=== PATIENT | female | born 1950 | race Caucasian/White ===

== ENCOUNTER → 2016-08-14 | Outpatient (CLI) | payer MEDICARE, OTHER ==
[~2016-08-14] MED LIST: CIPRO 500MG TA500 MG PO; CITALOPRAM10 MG PO; FUROSEMIDE 20MG20 MG PO; HYDROCHLOROTHIA25 M1 PO; HYDROCODONE BIT1 T36 PO; K-DUR 20MEQ TA20 MEQ PO; LASIX20 MG PO; LEVOTHYROXIN0.075 MG PO; LEXAPRO 20 MG T20 MG PO; LISINOPRIL 5MG T5 MG PO; LISINOPRIL/HCTZ1 TA3 PO; MOTRIN 600MG.600 MG PO; PANTOPRAZOLE SO40 M1 PO; PROTONIX 40MG T40 MG PO; PYRIDIUM 200MG200 MG PO; SPIRONOLACTONE25 MG PO; SYNTHROID 0.0.075 MG PO; TESSALON PERLE100 MG PO; TESSALON PERLE200 MG PO; TRAMADOL 50MG T50 MG PO; TYLENOL W/CODEI1 TA2 PO; VITAMIN D50000 I1 PO; WELLBUTRIN XL150 M1 PO; ZOFRAN ODT4 MG PO; [UNRECOGNIZED DRUG - REMARK]
[2016-08-14 13:49] LABS: BUN 10 mg/dL (7-18)
[2016-08-14 13:50] LABS: GFR (ESTIMATED) 84 ML/MIN (59-)
== END ==
LOC: LAB 12:15
PROVIDERS: Internal Medicine Adolescent Medicine
DX: E11.9 Type 2 diabetes mellitus without complications (principal); E78.5 Hyperlipidemia, unspecified; E03.9 Hypothyroidism, unspecified

== ENCOUNTER 2017-01-03 15:40 | Emergency (ER) | payer OTHER, MEDICARE ==
[~2017-01-03] VITALS: Ht 157.5 cm; Wt 77.1 kg
--- OUTSIDE RECORDS SUMMARY | 2017-01-03 16:00 | External Medical Summary Rpt | CCD ---
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 Name Role Phone Silver Ramsey MD, Unavailable Unavailable Silver Ramsey MD Purpose Continuity of Care Document - 02-04-2013 through 2016 Problems Code Diagnosis DOS Provider Status M89.8X1 OTHER 04-24-2016 SPECIFIED DISORDERS OF BONE, SHOULDER 311 311 02-04-2013 [place] DEPRESSIVE [facility] DISORDER [facility] 401.9 401.9 02-04-2013 [place] HYPERTENSIO [facility] NOS Hospital 413.9 413.9 02-04-2013 [place] ANGINA [facility] PECTORIS [facility] NEC/NOS 786.59 786.59 02-04-2013 [place] CHEST PAIN [facility] V14.8 V14.8 02-04-2013 [facility] V17.3 V17.3 [facility] 02-04-2013 [facility] HEART DIS [facility] V17.49 V17.49 02-04-2013 [place] FAMILY [facility] HISTORY OF Hospital OTHER CARDIOVASCU LAR DISEASES V18.0 V18.0 [facility] 02-04-2013 [facility] MELLITUS [facility] E03.9 HYPOTHYROID ISM, UNSPECIFIED E11.9 TYPE 2 DIABETES MELLITUS WITHOUT COMPLICATIO NS E78.4 OTHER HYPERLIPIDE SIMI I10 ESSENTIAL (PRIMARY) HYPERTENSIO N M54.5 LOW BACK PAIN R10.9 UNSPECIFIED ABDOMINAL PAIN R30.0 DYSURIA R31.29 OTHER MICROSCOPIC HEMATURIA R47.81 SLURRED SPEECH Z12.31 ENCNTR SCREEN MAMMOGRAM FOR MALIGNANT NEOPLASM OF BREAST Allergies, Adverse Reactions, Alerts Type Allergy to substance Drug Allergy Adverse Reaction to Substance Substance Reaction Severity Latex I-HIVES Unknown Promethazine Unknown Unknown Azithromycin NAUSEA/VOMITING Unknown Medications Na ND Rx Da Fi Fi Am Da Di Ph RX Ph St me C No te ll ll ou ys ag ar # ys at rm s nt no ma ic us Or Da si cy ia de te s n re d As 63 12 0 No pi 73 -1 ri 90 7- Lo n 02 20 ng EC 30 13 er 1 32 Ac 5M ti G ve Ta bl et LO 00 12 0 No VE 07 -1 NO 50 7- Lo X 62 20 ng 10 30 13 er 0 1 MG Ac /M ti L ve SY RI NG E NI 00 12 0 No TR 28 -1 O- 10 7- Lo BI 32 20 ng D 60 13 er 2% 8 Ac OI ti NT ve ME NT Vital Signs 02-04-2013 21:00 Name Value Interpretat Reference Comment ion Range Body 97.8 [degF] Temperature BP 75 mm[Hg] Diastolic BP Systolic 113 mm[Hg] Heart 60 /min Rate/Pulse O2% 96 % Respiratory 20 /min Rate 02-04-2013 16:00 Name Value Interpretat Reference Comment ion Range O2% 96 % 02-04-2013 10:00 Name Value Interpretat Reference Comment ion Range Body 98.2 [degF] Temperature BP 79 mm[Hg] Diastolic BP Systolic 142 mm[Hg] Heart 70 /min Rate/Pulse Height 157.48 cm Respiratory 16 /min Rate Weight 190 [lb_av] Measured Weight 86.354 kg Measured Results Labs Lab Lab Date Result Refere Interp Status Commen Order Detail nces retati t Range on Bacteria Ur Cult (08-30-2016 10:48) Bacteri [id number] complet a XXX 017 07 ed Anaerob 10:48 Escheri e+Aerob dougie e Cult coli (organi sm) SCT ECOL ESCHERI DOUGIE COLI L CC XXX NOTAP complet VC-aCnc 017 NOT ed 10:48 APPLICA BLE L Hemoglobin A1c in Blood (08-14-2016 12:16) Hemoglo 6.2 % 0.0% Normal complet bin A1c 017 - ed in 12:16 7.0% Blood BASIC METABOLIC PANEL (02-04-2013 10:35) Glucose 103 74-106 complet 013 mg/dL ed Bld-mCn 10:35 c BUN 19 7-18 complet Bld-mCn 013 mg/dL ed c 10:35 Creat 0.9 0.6-1.0 complet SerPl-m 013 mg/dL ed Cnc 10:35 Creat 87 50-200 complet Cl 013 ML/MIN ed predict 10:35 ed SerPl C-G-vRa te GFR/BSA 63 59- complet .pred 013 ML/MIN ed SerPl 10:35 Schwart z-vRate Sodium 141 136-145 complet SerPl-s 013 mmoL/L ed Cnc 10:35 Potassi 4.1 3.5-5.1 complet um 013 mmoL/L ed SerPl-s 10:35 Cnc Chlorid 103 98-107 complet e 013 mmoL/L ed SerPl-s 10:35 Cnc CO2 29 21.0-32 complet SerPl-s 013 mmoL/L .0 ed Cnc 10:35 Calcium 8.8 8.5-10. complet 013 mg/dL 1 ed SerPl-m 10:35 Cnc LIPID PROFILE (02-04-2013 10:35) Cholest 02-04- 180 Less complet 013 mg/dL than ed SerPl-m 10:35 200 Cnc HDLc 37.0 40-60 complet SerPl-m 013 MG/DL ed Cnc 10:35 LDLc 102.8 0-130 complet SerPl 013 mg/dL ed Calc-mC 10:35 nc VLDL 02-04- 40.2 0-40 complet CHOLEST 013 UNK ed RADHA 10:35 Trigl 201 30-200 complet SerPl-m 013 mg/dL ed Cnc 10:35 CBC with AUTO DIFF (02-04-2013 10:35) WBC # 17-2 7.4 4.8-10. complet Bld 013 K/MM3 8 ed Auto 10:35 RBC # 02-04- 4.73 4.2-5.4 complet Bld 013 M/mm3 ed Auto 10:35 Hgb 02-04- 14.0 12.2-16 complet Bld-mCn 013 g/dL .2 ed c 10:35 Hct Fr 40.2 % 37.0-47 complet Bld 013 .0 ed 10:35 MCV RBC 12-17-2 85.0 fl 82.2-97 complet 013 .8 ed 10:35 MCH RBC -17-2 29.7 pg 27-31.2 complet Qn 013 ed Auto 10:35 MEAN 12-17-2 35.0 31.8-35 complet CORPUSC 013 g/dl .4 ed ULAR 10:35 HGB CONC RDW RBC -17-2 14.7 % 11.5-17 complet Auto 013 .5 ed 10:35 Platele 12-17-2 264 142-424 complet t Bld 013 K/mm3 ed Ql 10:35 Manual MEAN -17-2 7.7 fl 7.4-10. complet PLATELE 013 4 ed T 10:35 VOLUME Granulo 12-17-2 64.1 % 37.0-80 complet cytes 013 .0 ed Fr Bld 10:35 Auto LYMPH % 12-17-2 29.2 % 10-50.0 complet 013 ed 10:35 Monocyt 12-17-2 5.4 % 1.7-9.3 complet es Fr 013 ed Bld 10:35 Auto Eosinop 12-17-2 1.0 % 0.1-12. complet hil Fr 013 0 ed Bld 10:35 Auto Basophi 12-17-2 0.3 % 0.1-2.0 complet ls Fr 013 ed Bld 10:35 Auto Granulo 12-17-2 4.7 1.8-7.8 complet cytes # 013 K/mm3 ed Bld 10:35 Auto Lymphoc 12-17-2 2.2 0.7-4.5 complet ytes Fr 013 K/mm3 ed Bld 10:35 Auto Monocyt 12-17-2 0.4 0.1-1.0 complet es # 013 K/mm3 ed Bld 10:35 Auto Eosinop 12-17-2 0.1 0.0-0.4 complet hil # 013 K/mm3 ed Bld 10:35 Auto Basophi 12-17-2 0.0 0-0.2 complet ls # 013 K/MM3 ed Bld 10:35 Auto Encounters Encounter Start End Date Code Location Performer Type Date Inpatient IMP Aly Ramsey MD ([place]) 3 09:33 3 20:30 [facility]
--- OUTSIDE RECORDS SUMMARY | 2017-01-03 16:00 | External Medical Summary Rpt | CCD ---
Author Author , MANAV Organization MANAV Address Unknown Phone [email or web address] Care Team Providers Care Vp Of Marketing Name Role Phone Silver Ramsey MD, Unavailable Unavailable Silver Ramsey MD Purpose Continuity of Care Document - 02-04-2013 through 2016 Problems Code Diagnosis DOS Provider Status M89.8X1 OTHER 04-24-2016 SPECIFIED DISORDERS OF BONE, SHOULDER 311 311 02-04-2013 [place] DEPRESSIVE [facility] DISORDER [facility] 401.9 401.9 02-04-2013 [place] HYPERTENSIO [facility] NOS Hospital 413.9 413.9 02-04-2013 [place] ANGINA [facility] PECTORIS [facility] NEC/NOS 786.59 786.59 02-04-2013 [place] CHEST PAIN [facility] V14.8 V14.8 [facility]-04[facility] V17.3 V17.3 [facility] 02-04-2013 [facility] HEART DIS [facility] V17.49 V17.49 02-04-2013 [place] FAMILY [facility] HISTORY OF Hospital OTHER CARDIOVASCU LAR DISEASES V18.0 V18.0 [facility] 02-04-2013 [facility] MELLITUS [facility] E03.9 HYPOTHYROID ISM, UNSPECIFIED E11.9 TYPE [...] on Bacteria Ur Cult (08-30-2016 10:48) Bacteri [id number] complet a XXX 017 07 ed Anaerob [...] Ramsey MD ([place]) 3 09:33 3 20:30 [facility]
--- OUTSIDE RECORDS SUMMARY | 2017-01-03 16:01 | External Medical Summary Rpt ---
Author Author MANAV El, MANAV [employer] Organization MANAV [employer] Address Unknown Phone Unavailable Results Thyrotropin [Units/volume] in Serum or Plasma Observa Value Referen Units Interpr Notes Date tion ce etation Range Thyrotrop 0.358 - uIU/ml High No Aug 14 in 3.740 informati 2016 [Units/vo on in 12:16 PM lume] in source Serum or data Plasma Comprehensive metabolic 2000 panel in Serum or Plasma Observa Value Referen Units Interpr Notes Date tion ce etation Range Albumin/G 1.1 - 1.8 No Normal No Aug 14 lobulin informati informati 2016 [Mass on in on in 12:16 PM ratio] in source source Serum or data data Plasma Albumin 3.4 - 5.0 gm/dL Normal No Aug 14 [Mass/vol informati 2016 ume] in on in 12:16 PM Serum or source Plasma data Alkaline 46 - 116 U/L High No Aug 14 phosphata informati 2016 se on in 12:16 PM [Enzymati source c data activity/ volume] in Serum or Plasma Bilirubin 0.2 - 1.0 mg/dL Normal No Aug 14 .total informati 2016 [Mass/vol on in 12:16 PM ume] in source Serum or data Plasma Urea 7 - 18 mg/dL Normal No Aug 14 nitrogen informati 2016 [Mass/vol on in 12:16 PM ume] in source Serum or data Plasma Calcium 8.5 - mg/dL Normal No Aug 14 [Mass/vol 10.1 informati 2016 ume] in on in 12:16 PM Serum or source Plasma data Chloride 98 - 107 mmoL/L High No Aug 14 [Moles/vo informati 2017 lume] in on in 12:16 PM Serum or source Plasma data Carbon 21.0 - mmoL/L Normal No Aug 14 dioxide, 32.0 informati 2017 total on in 12:16 PM [Moles/vo source lume] in data Serum or Plasma Creatinin 0.55 - mg/dL Normal No Aug 14 e 1.02 inform2016 [Mass/vol on in 12:16 PM ume] in source Serum or data Plasma Estimated 59- ML/MIN No REFERENCE Aug 14 informati RANGE: 2017 glomerula on in >60 12:16 PM r source ML/MIN/1. filtratio data 73 SQUARE n rate METERSIf (GF this patient is -A merican, then multiply theresult by 1.210. Globulin 1.3 - 3.2 gm/dL Normal No Aug 14 [Mass/vol informati 2016 ume] in on in 12:16 PM Serum source data Glucose 74 - 106 mg/dL Normal No Aug 14 [Mass/vol informati 2016 ume] in on in 12:16 PM Serum or source Plasma data Potassium 3.5 - 5.1 mmoL/L Normal No Aug 142016 [Moles/vo on in 12:16 PM lume] in source Serum or data Plasma Sodium 136 - 145 mmoL/L Normal No Aug 14 [Moles/vo informati 2016 lume] in on in 12:16 PM Serum or source Plasma data Aspartate 15 - 37 U/L Low No Aug 142016 aminotran on in 12:16 PM sferase source [Enzymati data c activity/ volume] in Serum or Plasma Alanine 12 - 78 U/L Normal No Aug 14 aminotran 2016 sferase on in 12:16 PM [Enzymati source c data activity/ volume] in Serum or Plasma Protein 6.4 - 8.2 gm/dL Normal No Aug 14 [Mass/vol informati 2016 ume] in on in 12:16 PM Serum or source Plasma data Lipid 1996 panel in Serum or Plasma Observa Value Referen Units Interpr Notes Date tion ce etation Range Cholester < 200 mg/dL No No Aug 14 ol informati inform2016 [Moles/vo on in on in 12:16 PM lume] in source source Unspecifi data data ed specimen Cholester 40 - 60 MG/DL Low No Aug 14 ol in HDL inform2016 on in 12:16 PM [Mass/vol source ume] in data Serum or Plasma Cholester 0 - 130 mg/dL Normal No Aug 14 ol in LDL inform2016 on in 12:16 PM [Mass/vol source ume] in data Serum or Plasma by marjorie on Triglycer 30 - 200 mg/dL High No Aug 14 cara informati 2016 [Moles/vo on in 12:16 PM lume] in source Serum or data Plasma Cholester 0 - 40 No High No Aug 14 ol in informati informati 2017 VLDL on in on in 12:16 PM [Mass/vol source source ume] in data data Serum or Plasma Hemoglobin A1c in Blood Observa Value Referen Units Interpr Notes Date tion ce etation Range Hemoglo 6.2 0.0 - % Normal < 6% Aug 14 bin A1c 7.0 NON-MARLENE 2017 in BETIC 12:16 Blood LEVEL< PM 7% CONTROL LED DIABETI C LEVEL> 8% POORLY CONTROL LED DIABETI C LEVEL
--- OUTSIDE RECORDS SUMMARY | 2017-01-03 16:01 | External Medical Summary Rpt | CCD ---
Author Author , MANAV EM Address Unknown Phone [email or web address] Immunization Name Date Rout CVX Reac Dose Comm Prov Is Faci e tion ent ider Refu lity Give sed n Infl 09-1 Intr 0.5 Hist KHAF No RITE uenz 7-20 amus mL oric CLARISSA AID0 a 17 cula al AYMA 3938 Tri, r Info N Adj rmat ion - Sour ce Unsp ecif ied Infl 09-1 Intr 999 Hist PD20 No PD20 uenz 7-20 amus oric 255 255 a 17 cula al Quad r Info rmat W/Pr ion es - Sour ce Unsp ecif ied
--- OUTSIDE RECORDS SUMMARY | 2017-01-03 16:01 | External Medical Summary Rpt | CCD ---
Author Author [employer] Organization [employer] Address Unknown Phone Unavailable Purpose Continuity of Care Document - through 2016
--- OUTSIDE RECORDS SUMMARY | 2017-01-03 16:01 | External Medical Summary Rpt ---
Author Author MANAV El, MANAV [email or web address] Organization MANAV [employer] Address Unknown Phone Unavailable [...]
--- OUTSIDE RECORDS SUMMARY | 2017-01-03 16:01 | External Medical Summary Rpt | CCD ---
Author Author , MANAV EM Address Unknown Phone [email or web address] Immunization Name Date Rout CVX Reac Dose [...]
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
[2017-01-03 16:45] VITALS: BP 156/96
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
== END 2017-01-03 16:45 | disposition home or self-care (01) ==
LOC: ER 15:40
DX: S29.019A Strain of muscle and tendon of unspecified wall of thorax, initial encounter (principal); V43.52XA Car driver injured in collision with other type car in traffic accident, initial encounter; Y92.410 Unspecified street and highway as the place of occurrence of the external cause; I10 Essential (primary) hypertension; E11.9 Type 2 diabetes mellitus without complications

== ENCOUNTER 2017-01-06 18:07 | Emergency (ER) | payer MEDICARE, OTHER ==
[~2017-01-06] VITALS: Ht 157.5 cm; Wt 74.6 kg
--- OUTSIDE RECORDS SUMMARY | 2017-01-06 18:18 | External Medical Summary Rpt | CCD ---
Author Author , MANAV EM Address Unknown Phone [email or web address] Immunization Name Date Rout CVX Reac Dose Comm Prov Is Faci e tion ent ider Refu lity Give sed n Infl 09-1 Intr 999 Hist PD20 No PD20 uenz 7-20 amus oric 255 255 a 17 cula al Quad r Info rmat W/Pr ion es - Sour ce Unsp ecif ied Infl 09-1 Intr 0.5 Hist KHAF No RITE uenz 7-20 amus mL oric CLARISSA AID0 a 17 cula al AYMA 3938 Tri, r Info N Adj rmat ion - Sour ce Unsp ecif ied
--- OUTSIDE RECORDS SUMMARY | 2017-01-06 18:18 | External Medical Summary Rpt ---
Author Author MANAV El, MANAV [employer] Organization [employer] Address Unknown Phone Unavailable [...]
--- OUTSIDE RECORDS SUMMARY | 2017-01-06 18:18 | External Medical Summary Rpt | CCD ---
Author Author , MANAV EM Address Unknown Phone [email or web address] Immunization Name Date Rout CVX Reac Dose [...]
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
--- OUTSIDE RECORDS SUMMARY | 2017-01-06 18:18 | External Medical Summary Rpt | CCD ---
Author Author , MANAV EM Address Unknown Phone [email or web address] Care Team Providers Care Crime Scene Analyst Name Role Phone Silver Ramsey MD, Unavailable Unavailable Silver Ramsey MD Purpose Continuity of Care Document - 02-04-2013 through 2016 Problems Code Diagnosis DOS Provider Status M89.8X1 OTHER 04-24-2016 SPECIFIED DISORDERS OF BONE, SHOULDER 311 311 02-04-2013 [place] DEPRESSIVE [facility] DISORDER [facility] 401.9 401.9 02-04-2013 [place] HYPERTENSIO [facility] NOS Hospital 413.9 413.9 02-04-2013 [place] ANGINA [facility] PECTORIS [facility] NEC/NOS 786.59 786.59 02-04-2013 [place] CHEST PAIN [facility] V14.8 V14.8 [facility]-04[facility] V17.3 V17.3 FAM 02-04-2013 [facility] HEART DIS [facility] V17.49 V17.49 02-04-2013 [place] FAMILY [facility] HISTORY OF Hospital OTHER CARDIOVASCU LAR DISEASES V18.0 V18.0 [facility] 02-04-2013 [facility] MELLITUS [facility] E03.9 HYPOTHYROID ISM, UNSPECIFIED E11.9 TYPE 2 [...] NOT ed 10:48 APPLICA BLE L Bacteri [id number] complet a XXX 017 07 ed Anaerob [...] Date Code Location Performer Type Date Inpatient [facility] Aly Ramsey MD ([place]) 3 09:33 3 20:30 [facility]
--- OUTSIDE RECORDS SUMMARY | 2017-01-06 18:18 | External Medical Summary Rpt ---
Author Author MANAV El, MANAV [employer] Organization [employer] Address Unknown Phone Unavailable [...]
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
[2017-01-06] MEDS ORDERED: PROAIR HFA0.09 MG/AC IH (19:05)
[2017-01-06] MEDS ORDERED: ZITHROMAX Z PA250 MG PO (19:05)
[2017-01-06] MEDS ORDERED: MUCINEX1200 MG PO (19:08)
[2017-01-06] MEDS ORDERED: TESSALON PERLE100 M1 PO (19:08)
[2017-01-06 19:20] VITALS: BP 128/84
== END 2017-01-06 19:20 | disposition home or self-care (01) ==
LOC: UTC 18:07
DX: J06.9 Acute upper respiratory infection, unspecified (principal); E11.9 Type 2 diabetes mellitus without complications; I10 Essential (primary) hypertension; I20.8 Other forms of angina pectoris